=== PATIENT | male | born 1940 | race Hispanic/Latino ===

== ENCOUNTER 2016-04-20 11:33 | Day surgery (SDC) | payer MEDICARE ==
[2016-04-20] MEDS ORDERED: IOPIDINE OS ONE (12:10)
[2016-04-20] MEDS ORDERED: MYDRIACYL OS ONE (12:10)
[2016-04-20] MEDS ORDERED: NEOFRIN OS ONE (12:10)
[2016-04-20 12:44] VITALS: BP 150/90
== END 2016-04-20 12:45 | disposition home or self-care (01) ==
LOC: OR 11:33
PROVIDERS: ATTEND Ophthalmology
DX: H26.492 Other secondary cataract, left eye (principal); I25.10 Atherosclerotic heart disease of native coronary artery without angina pectoris; I10 Essential (primary) hypertension; E78.00 Pure hypercholesterolemia, unspecified; E11.9 Type 2 diabetes mellitus without complications; J44.9 Chronic obstructive pulmonary disease, unspecified; Z85.46 Personal history of malignant neoplasm of prostate; Z87.891 Personal history of nicotine dependence; Z98.890 Other specified postprocedural states
CPT/HCPCS: 82962

== ENCOUNTER 2016-05-11 11:56 | Day surgery (SDC) | payer MEDICARE ==
[2016-05-11] MEDS ORDERED: MYDRIACYL 1% OD ONE (12:20)
[2016-05-11] MEDS ORDERED: IOPIDINE OD ONE (12:20)
[2016-05-11] MEDS ORDERED: AK-Dilate OD ONE (12:20)
[2016-05-11 13:15] VITALS: BP 154/96
== END 2016-05-11 11:57 | disposition home or self-care (01) ==
LOC: OR 11:56
PROVIDERS: ATTEND Specialist
DX: H26.491 Other secondary cataract, right eye (principal); I25.10 Atherosclerotic heart disease of native coronary artery without angina pectoris; I10 Essential (primary) hypertension; E78.00 Pure hypercholesterolemia, unspecified; J44.9 Chronic obstructive pulmonary disease, unspecified; M19.90 Unspecified osteoarthritis, unspecified site; Z87.891 Personal history of nicotine dependence; Z85.46 Personal history of malignant neoplasm of prostate; Z98.890 Other specified postprocedural states; Z90.79 Acquired absence of other genital organ(s)